=== PATIENT | male | born 1950 | race Caucasian/White ===

== ENCOUNTER → 2023-06-04 | Day surgery (SDC) | payer OTHER ==
[2023-06-03 11:07] LABS: BASOPHILS # (AUTO) 0.1 (0.0-0.1); BASOPHILS % 0.7 % (0.0-1.0); EOSINOPHILS # (AUTO) 0.2 (0.0-0.4); EOSINOPHILS % 1.6 % (0.0-6.0); HEMATOCRIT 51.9 % (38.2-49.6); HEMOGLOBIN 16.4 g/dL (14.0-18.0); LYMPHOCYTES # (AUTO) 2.7 (1.0-3.2); LYMPHOCYTES % 22.9 % (18.0-39.1); MEAN CORPUSCULAR HEMOGLOBIN 31.2 pg (28-32); MEAN CORPUSCULAR HGB CONC 31.6 g/dL (31-35); MEAN CORPUSCULAR VOLUME 98.9 fL (81-99); MONOCYTES # (AUTO) 0.8 (0.2-0.8); MONOCYTES % 6.9 % (4.4-11.3); NEUTROPHILS # (AUTO) 8.1 (2.1-6.9); NEUTROPHILS % 67.5 % (38.7-80.0); PLATELET COUNT 244 x10e3/uL (140-360); RED BLOOD COUNT 5.25 x10e6/uL (4.3-5.7); WHITE BLOOD COUNT 11.94 x10e3/uL (4.8-10.8)
[~2023-06-04] MED LIST: ACIDOPHILUS1 EAC1 PO; CALCIUM PO; CETIRIZINE HCL10 MG PO; ENBREL50 MG/1 ML SQ; FOLIC ACID PO; GLIPIZIDE5 MG PO; JARDIANCE25 MG PO; LACTATED RINGER'S 1,000 ML ONE; METFORMIN HCL500 MG PO; METHOTREXATE2.5 MG PO; PIOGLITAZONE HC45 MG PO
[2023-06-04 10:55] VITALS: TEMP 97.8
[2023-06-04 11:10] VITALS: BP 113/70; PULSE 80; RESP 16; O2SAT 96
== END | disposition home or self-care (01) ==
LOC: ENDO 07:07
PROVIDERS: ATTEND Internal Medicine Gastroenterology
DX: Z12.11 Encounter for screening for malignant neoplasm of colon (principal); D12.5 Benign neoplasm of sigmoid colon; K57.30 Diverticulosis of large intestine without perforation or abscess without bleeding; K59.00 Constipation, unspecified; K64.8 Other hemorrhoids; K64.4 Residual hemorrhoidal skin tags; G47.33 Obstructive sleep apnea (adult) (pediatric); E11.9 Type 2 diabetes mellitus without complications; E78.5 Hyperlipidemia, unspecified; F17.210 Nicotine dependence, cigarettes, uncomplicated; Z88.8 Allergy status to other drugs, medicaments and biological substances; Z01.810 Encounter for preprocedural cardiovascular examination; Z01.812 Encounter for preprocedural laboratory examination; Z79.84 Long term (current) use of oral hypoglycemic drugs; Z79.899 Other long term (current) drug therapy; Z85.828 Personal history of other malignant neoplasm of skin
CPT/HCPCS: 36415 ×2; 45385; 82948; 85025; 88305; 93005; J7121; 45378